=== PATIENT | female | born 1950 | race Two or more races ===

== ENCOUNTER 2024-12-19 15:37 | Emergency (ER) | payer OTHER ==
[~2024-12-19] VITALS: Ht 157.5 cm; Wt 63.0 kg
[2024-12-19 16:15] VITALS: PULSE 85; RESP 12; O2SAT 98
[2024-12-19 16:17] VITALS: TEMP 98.4
[2024-12-19 19:25] VITALS: PULSE 90; RESP 14; O2SAT 96
--- NOTE | 2024-12-19 19:38 | DVH ---
Exam: CT CT AB PEL WO CON-NO ORAL OR IV History: GI Tube complication/Bleeding/pain Comparison Study: None TECHNIQUE: Multidetector CT of the abdomen abdomen and pelvis without IV contrast. Axial, coronal and sagittal multiplanar reformats were obtained from the axial data set by the technologist. Radiation Dose Information: CT Dose: CTDI volume is 10.01 mGy. Dose-length product is 528.82 mGy*cm FINDINGS: Bibasilar atelectasis. Mild cardiomegaly with trace pericardial effusion. Liver, spleen and adrenal glands are unremarkable. Severe fatty infiltration of the pancreas limited evaluation acute pancreatitis given mesenteric edema/trace ascites. Possible Sludge within the Gallbl adder with Limited evaluation for pericholecystic edema given trace ascites/mesenteric edema. Small bilateral renal cysts. No hydronephrosis or renal calculi bilaterally. Urinary bladder is mildl y distended. Otherwise unremarkable. Uterine calcification is noted which may represent calcified fi broid. . Uterus and adnexa otherwise unremarkable. Gastrostomy tube is noted in satisfactory position. Stomach is unremarkable. Small bowel loops unrem arkable. Appendix is unremarkable. Large amount of fecal material within the visualized colon with re ctal fecal impaction, rectal wall thickening and perirectal edema. No evidence of intraperitoneal free air. No evidence of aortic aneurysm. Mild atherosclerotic calcification of the aorta. No significant lymphadenopathy. Tiny fat containing umbilical hernia. Mild to moderate body wall edema. Diffuse demineralization. No evidence of acute osseous abnormalities. IMPRESSION: Limited noncontrast imaging. Trace ascites/mesenteric edema limiting evaluation. Gastrostomy tube is noted in satisfactory position. Constipation rectal fecal impaction and stercoral colitis. Additional findings as above.
--- NOTE | 2024-12-19 22:03 | ED.PDOC ---
GI ASSESSMENT HPI Comments PT BIAB FROM HOME, REPORTS FAMILY NOTED PT PULLED OUT G TUBE YESTERDAY, NOTED DRY BLOOD ON TUBE. NO DRAINAGE OR BLEEDING NOTED. CLEAN AND DRY BANDAGE INTACT. PT PMH OF DEMENTIA, DENIES ANY PAIN. NO DISTRESS, PLACED IN BED 1 Chief Complaint: Tube Replacement Time Seen by MD: 17:47 Primary Care Provider: UNKNOWN Reviewed Notes: Nurses Notes, Medications, Allergies Allergies: Coded Allergies: NO KNOWN ALLERGIES (Unverified , 12/19/24) Information Source: Patient Mode of Arrival: EMS Past Medical History PAST MEDICAL HISTORY: Dementia Family History Family History: Reviewed,noncontributory to illness Social History Smoker: Non-Smoker Alcohol: Denies ETOH Use Drugs: Denies Drug Use Constitutional: denies: chills, diaphoresis, fatigue, fever, malaise, sweats, weakness, others EENTM: denies: blurred vision, double vision, ear bleeding, ear discharge, ear drainage, ear pain, ear ringing, eye pain, eye redness, hearing loss, mouth pain, mouth swelling, nasal discharge, nose bleeding, nose congestion, nose pain, photophobia, tearing, throat pain, throat swelling, voice changes, others Respiratory: denies: cough, hemoptysis, orthopnea, SOB at rest, shortness of breath, SOB with excertion, stridor, wheezing, others Cardiovascular: denies: chest pain, dizzy spells, diaphoresis, Dyspnea on exertion, edema, irregular heart beat, left arm pain, lightheadedness, palpitations, PND, syncope, others Gastrointestinal: reports: abdomen distended, abdominal pain; denies: blood streaked bowels, constipated, diarrhea, dysphagia, difficulty swallowing, hematemesis, melena, nausea, poor appetite, poor fluid intake, rectal bleeding, rectal pain, vomiting, others Genitourinary: denies: abnormal vagina bleeding, burning, dyspareunia, dysuria, flank pain, frequency, hematuria, incontinence, pain, , vagina discharge, urgency, others Neurological: denies: dizziness, fainting, headache, left sided numbness, left sided weakness, numbness, paresthesia, pre-existing deficit, right sided numbness, right sided weakness, seizure, speech problems, tingling, tremors, weakness, others Musculoskeletal: denies: back pain, gout, joint pain, joint swelling, muscle pain, muscle stiffness, neck pain, others Integumetry: denies: bruises, change in color, change in hair/nails, dryness, laceration, lesions, lumps, rash, wounds, others Allergic/Immunocompromised: denies: Difficulty Healing, Frequent Infections, Hives, Itching, others Hematologic/Lymphatic: denies: anemia, blood clots, easy bleeding, easy bruising, swollen glands, others Endocrine: denies: excessive hunger, excessive sweating, excessive thirst, excessive urination, flushing, intolerance to cold, intolerance to heat, unexplained weight gain, unexplained weight loss, others Psychiatric: denies: anxiety, bipolar disorder, depression, hopeless, panic disorder, schizophrenia, sleepless, suicidal, others Physical Exam General Appearance: No Apparent Distress, Normal HEENT: Pharynx Normal Neck: Full Range of Motion, Non-Tender Respiratory: Lungs Clear, No Respiratory Distress, Normal Breath Sounds Cardiovascular: No Murmur, Normal Peripheral Pulses, Regular Rate/Rhythm Breast Exam: Deferred Gastrointestinal: No Organomegaly, No Pulsatile Mass, Normal Bowel Sounds, Soft, Tenderness (Mid lower quadrant ) Genitalia: Deferred Pelvic: Deferred Rectal: Deferred Extremities: No calf tenderness, Normal capillary refill, Normal inspection, Normal range of motion, Non-tender, No pedal edema Musculoskeletal : Apperance: Normal Neurologic: Alert, mobile development manager II-XII nml as Tested, No Motor Deficits, Normal Affect, Normal Mood, No Sensory Deficits Cerebellar Function: Normal Reflexes: Normal Skin: Dry, Normal Color, Warm Lymphatic: No Adenopathy Was a procedure done? Was a procedure done?: No GI differential Dx Differential Diagnosis: Gastritis/PUD, Gastroenteritis, Ischemic Bowel, Impaction X-Ray, Labs, Meds, VS Vital Signs Date Time Temp Pulse Resp B/P (MAP) Pulse Ox O2 Delivery O2 Flow Rate FiO2 12/20/24 05:40 93 9 113/89 (97) 97 12/20/24 03:40 80 7 149/75 (99) 98 12/20/24 01:40 80 11 140/63 (88) 97 12/19/24 23:40 80 7 149/75 (99) 98 12/19/24 21:40 76 11 169/131 (144) 97 12/19/24 19:40 79 13 160/83 (108) 97 12/19/24 19:25 90 14 96 Room Air* 0 21 12/19/24 18:40 85 12 166/93 (117) 97 12/19/24 17:15 88 16 147/80 (102) 98 12/19/24 16:17 98.4 87 16 168/93 (118) 100 98.4 12/19/24 16:15 85 12 98 Room Air* 0 21 12/19/24 16:15 98.3 85 12 178/81 (113) 98 98.3 Lab Test 12/19/24 22:23 Range/Units White Blood Count 5.5 4.4-10.8 10^3/uL Red Blood Count 4.21 4.0-5.20 10^6/uL Hemoglobin 12.3 12.2-16.2 g/dL Hematocrit 37.4 36.0-46.0 % Mean Corpuscular Volume 88.7 80.0-100.0 fL Mean Corpuscular Hemoglobin 29.2 28.0-32.0 pg Mean Corpuscular Hemoglobin Concent 32.9 32.0-36.0 g/dL Red Cell Distribution Width 16.5 H 11.8-14.3 % Platelet Count 285 140-450 10^3/uL Mean Platelet Volume 7.6 6.9-10.8 fL Neutrophils (%) (Auto) 61.0 37.0-80.0 % Lymphocytes (%) (Auto) 29.7 10.0-50.0 % Monocytes (%) (Auto) 7.8 0.0-12.0 % Eosinophils (%) (Auto) 1.1 0.0-7.0 % Basophils (%) (Auto) 0.4 0.0-2.0 % Neutrophils # (Auto) 3.4 1.6-8.6 10 ^3/uL Lymphocytes # (Auto) 1.6 0.4-5.4 10 ^3/uL Monocytes # (Auto) 0.4 0-1.3 10 ^3/uL Eosinophils # (Auto) 0.1 0-0.8 10 ^3/uL Basophils # (Auto) 0 0-0.2 10 ^3/uL Nucleated Red Blood Cells 0.0 % Sodium Level 144 136-145 mmol/L Potassium Level 3.7 3.5-5.1 mmol/L Chloride Level 110 H 98-107 mmol/L Carbon Dioxide Level 25 20-31 mmol/L Anion Gap 9 5-15 Blood Urea Nitrogen 10 9-23 mg/dL Creatinine 0.44 L 0.550-1.02 mg/dL Glomerular Filtration Rate Calc 103 >90 mL/min BUN/Creatinine Ratio 22.7 H 10.0-20.0 Serum Glucose 227 H 74-106 mg/dL Calcium Level 8.7 8.7-10.4 mg/dL Total Bilirubin 0.7 0.2-1.0 mg/dL Aspartate Amino Transferase (AST) 22 13-40 U/L Alanine Aminotransferase (ALT) 20 7-40 U/L Alkaline Phosphatase 134 H 46-116 U/L Total Protein 6.4 5.7-8.2 g/dL Albumin 3.6 3.2-4.8 g/dL Lipase 21 12-53 U/L [place] [id number] Ph: [phone] DIAGNOSTIC IMAGING Diagnostic Imaging Report : [id number] Signed PATIENT: MICHELLE HOUSERT: [id number] UNIT: [id number] : 1950 LOC: ER ROOM / BED: / AGE / SEX: 74 / F ADM STATUS: REG ER SERVICE 01 ORDERING PHYSICIAN: MONICA COLVIN PROCEDURE(s): ABPL - CT AB PEL WO CON-NO ORAL OR IV REASON: GI Tube complication/Bleeding/pain ORDER NUMBER(s): [id number], ACCESSION NUMBER(s): [id number] Exam: CT CT AB PEL WO CON-NO ORAL OR IV History: GI Tube complication/Bleeding/pain Comparison Study: None TECHNIQUE: Multidetector CT of the abdomen abdomen and pelvis without IV contrast. Axial, coronal and sagittal multiplanar reformats were obtained from the axial data set by the technologist. Radiation Dose Information: CT Dose: CTDI volume is 10.01 mGy. Dose-length product is 528.82 mGy*cm FINDINGS: Bibasilar atelectasis. Mild cardiomegaly with trace pericardial effusion. Liver, spleen and adrenal glands are unremarkable. Severe fatty infiltration of the pancreas limited evaluation acute pancreatitis given mesenteric edema/trace ascites. Possible Sludge within the Gallbladder with Limited evaluation for pericholecystic edema given trace ascites/mesenteric edema. Small bilateral renal cysts. No hydronephrosis or renal calculi bilaterally. Urinary bladder is mildly distended. Otherwise unremarkable. Uterine calcification is noted which may represent calcified fibroid. . Uterus and a dnexa otherwise unremarkable. Gastrostomy tube is noted in satisfactory position. Stomach is unremarkable. Small bowel loops unremarkable. Appendix is unremarkable. Large amount of fecal material within the visualized colon with rectal fecal impaction, rectal wall thickening and perirectal edema. No evidence of intraperitoneal free air. No evidence of aortic aneurysm. Mild atherosclerotic calcification of the aorta. No significant lymphadenopathy. Tiny fat containing umbilical hernia. Mild to moderate body wall edema. Diffuse demineralization. No evidence of acute osseous abnormalities. IMPRESSION: Limited noncontrast imaging. Trace ascites/mesenteric edema limiting evaluation. Gastrostomy tube is noted in satisfactory position. Constipation rectal fecal impaction and stercoral colitis. Additional findings as above. ATED BY: CINDY COVINGTON DO DICTATED DATE/TIME: 12/19/241934 SIGNED BY: CINDY COVINGTON DO SIGNED DATE/TIME: 12/19/241934 CC: X-Ray, Labs, Meds, VS Comment CT ABDOMEN PELVIS IMPRESSION: Limited noncontrast imaging. Trace ascites/mesenteric edema limiting evaluation. Gastrostomy tube is noted in satisfactory position. Constipation rectal fecal impaction and stercoral colitis. PATIENT PLACED FOR ER OBSERVATION DISCHARGE WITH FAMILY IN THE MORNING. FOLLOW UP WITH GI SCHEDULED FOR GASTROSTOMY TUBE REMOVAL. CT SHOWS TUBE IN PLACE THIS TIME. Time of 1ST Reevaluation: 18:00 Reevaluation 1ST: Unchanged Time of 2ND Reevaluation: 20:00 Reevaluation 2ND: Unchanged Patient Education/Counseling: Diagnosis, Treatment, Prognosis, Need For Follow Up Family Education/Counseling: No Family Present SEPSIS Sepsis Screen Date sepsis recognized/suspect: Dec 19, 2024 Time Sepsis recognized/suspect: 1544 Recent Procedure: No On Antibiotic Therapy: No Respiratory Rate >20: No Heart Rate >90: No Temp<36 C (96.8 F) or >38.3 C: No SBP <90 or MAP <65 mmHG: No New Acute Mental Status Change: No Is the patient on CPAP, BIPAP,: No Physician Orders Ct Ab Pel Wo Con-No Oral Or Iv (12/19/24 18:02) Heplock Iv (12/19/24 ) Vital Signs Date Time Temp Pulse Resp B/P (MAP) Pulse Ox O2 Delivery O2 Flow Rate FiO2 12/20/24 05:40 93 9 113/89 (97) 97 12/20/24 03:40 80 7 149/75 (99) 98 12/20/24 01:40 80 11 140/63 (88) 97 12/19/24 23:40 80 7 149/75 (99) 98 12/19/24 21:40 76 11 169/131 (144) 97 12/19/24 19:40 79 13 160/83 (108) 97 12/19/24 19:25 90 14 96 Room Air* 0 21 12/19/24 18:40 85 12 166/93 (117) 97 12/19/24 17:15 88 16 147/80 (102) 98 12/19/24 16:17 98.4 87 16 168/93 (118) 100 98.4 12/19/24 16:15 85 12 98 Room Air* 0 21 12/19/24 16:15 98.3 85 12 178/81 (113) 98 98.3 Laboratory Tests Test 12/19/24 22:23 White Blood Count 5.5 10^3/uL (4.4-10.8) Departure 1 Departure Time of Disposition: 21:59 Impression: Primary Impression: Complication of gastrostomy tube Additional Impression: Dementia Qualified Codes: F03.C0 - Unspecified dementia, severe, without behavioral disturbance, psychotic disturbance, mood disturbance, and anxiety Disposition: 02 SHORT TERM HOSPITAL Condition: Stable Discharged With: Self Critical Care Note Critical Care Time?: No Stability Stability form required: No I personally scribed for ER ([email or web address]) on 12/20/24 at 07:02. Electronically submitted by Warren Saha ([email or web address]). MONICA COLVIN [facility] Dec 19, 2024 22:03 ER Dec 20, 2024 07:02
[2024-12-19 22:35] LABS: Hematocrit 37.4 % (36.0-46.0); Hemoglobin 12.3 g/dL (12.2-16.2); Mean Corpuscular Hemoglobin 29.2 pg (28.0-32.0); Mean Corpuscular Volume 88.7 fL (80.0-100.0); Nucleated Red Blood Cells % 0.0 %
[2024-12-19] MEDS: SODIUM CHLORIDE 0.9% 1,000 ML IV ONE (22:43)
[2024-12-19 22:52] LABS: Alanine Aminotransferase 20 U/L (7-40); Albumin 3.6 g/dL (3.2-4.8); Anion Gap 9 (5-15); BUN/Creatinine Ratio 22.7 (10.0-20.0); Blood Urea Nitrogen 10 mg/dL (9-23); Calcium 8.7 mg/dL (8.7-10.4); Carbon Dioxide 25 mmol/L (20-31); Lipase 21 U/L (12-53); Potassium 3.7 mmol/L (3.5-5.1); Sodium 144 mmol/L (136-145); Total Protein 6.4 g/dL (5.7-8.2)
[2024-12-19 22:53] LABS: Bilirubin, Total 0.7 mg/dL (0.2-1.0)
[2024-12-19 22:58] LABS: Alkaline Phosphatase 134 U/L (46-116); Chloride 110 mmol/L (98-107); Glucose 227 mg/dL (74-106)
[2024-12-20 05:40] VITALS: BP 113/89; PULSE 93; RESP 9; O2SAT 97
== END 2024-12-20 07:30 | disposition home or self-care (01) ==
LOC: EDBD 15:37 → ER 15:37
DX: K94.29 Other complications of gastrostomy (principal); F03.90 Unspecified dementia, unspecified severity, without behavioral disturbance, psychotic disturbance, mood disturbance, and anxiety
CPT/HCPCS: 36415; 74176; 80053; 83690; 85025; 96360; 96361; 99285; J7030